=== PATIENT | female | born 1950 | race American Indian/Alaskan Native ===

== ENCOUNTER 2017-10-16 06:59 | Emergency (ER) | payer OTHER, MEDICARE ==
[2017-10-16 07:14] VITALS: BP 194/102
[2017-10-16] MEDS ORDERED: MOTRIN PO ONE (09:12)
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
== END 2017-10-16 10:28 | disposition home or self-care (01) ==
LOC: ED 06:59
DX: S16.1XXA Strain of muscle, fascia and tendon at neck level, initial encounter (principal); S09.90XA Unspecified injury of head, initial encounter; I10 Essential (primary) hypertension; Y09 Assault by unspecified means; Y93.89 Activity, other specified; Y92.89 Other specified places as the place of occurrence of the external cause; Y99.8 Other external cause status
CPT/HCPCS: 70450; 72125; 99283